=== PATIENT | female | born 1960 | race Caucasian/White ===

== ENCOUNTER 2017-08-12 09:55 | Day surgery (SDC) | payer OTHER, SELFPAY ==
--- NOTE | 2017-08-12 | BRBX_PTH ---
PATIENT: PING ZAMAN [place] [facility] [id number] AGE/SX: 56/F ROOM: RE08/12/[address]: Dr. Dru Marcus MD : 1960 BED: DIS: 08/12/2017 SPEC #: [id number] RECD: 08/12/17 12:24 STATUS: BERTRANDJono DE LEON #: [id number] MIL: 08/12/17 00:[address]: Dru Marcus DEPT: SURGICAL PATHOLOGY RECD BY: Bennie Neri ENTERED: 08/12/17 13:38 SP TYPE: BREAST BX OTHR DR: Joshua Esposito Tissues: A - Left breast, NOS B - Left breast, NOS Procedures: Surgery Specimen Level IV Surgery Specimen Level V HEADER OPERATION: Breast biopsy, NL PRE-OP DIAGNOSIS: Intraductal papilloma ? left breast TISSUE SUBMITTED: A ? Left breast tissue ? to mammography, then lab, B ? Posterior margins ? left breast ISCHEMIC TIME: 15 minutes FIXATION TIME: 31 hours MICROSCOPIC DIAGNOSIS A. Left breast tissue, needle localization, biopsy: Intraductal papilloma. Changes consistent with previous biopsy site. Negative for malignancy. B. Posterior margin, left breast: Intraductal hyperplasia with focal atypia. Negative for malignancy. SELWYN:barber 08/14/17 COMMENT Please make reference to previous specimen ([id number]) superior left breast, ultrasound-guided core biopsy with diagnosis of consistent with adenosis and changes suggestive of intraductal papilloma and inferior left breast, ultrasound-guided core biopsy with diagnosis of focal fibrocystic changes and intraductal hyperplasia without atypia. Case has been reviewed in consultation with Dr. Page who concurs with the above diagnosis. IDC:AM MICROSCOPIC DESCRIPTION Slides are reviewed. GROSS DESCRIPTION A - Received in fixative is one container labeled with the patient's name and designated left breast biopsy. The specimen consists of an irregular fragment of yellow fatty tissue containing a metallic wire. The specimen measures 3.5 x 3.4 x 1.5 cm and weighs 9.2 gm. No orientation is provided. The external surface is inked and the specimen serially sectioned to reveal a yellow cut surface with hemorrhagic cyst. The cyst measures 0.7 x 0.5 cm in greatest dimension. A metallic tracer clip is present within this cyst. The specimen is serially sectioned and totally submitted in six cassettes. B - Received in fixative is one container labeled with the patient's name and designated posterior margin left breast. The specimen consists of an irregular fragment of yellow fatty tissue measuring 2.5 x 1.6 x 1 cm. No orientation is provided. Sections reveal homogenous yellow fatty tissue. No mass lesions are seen. The specimen is serially sectioned and totally submitted in two cassettes. / AM:barber 08/13/17 TC:1 CPT: 79015, 77680
[2017-08-12 10:11] VITALS: BP 148/83; PULSE 92; RESP 16; TEMP 36.1; O2SAT 100; BMI 47.9
--- NOTE | 2017-08-12 10:12 | HPBI_ITS ---
SURGICAL BREAST SPECIMEN RADIOGRAPH CLINICAL: Document presence of mass in biopsy specimen. FINDINGS: Specimen shows presence of mass. Electronically Signed: Michael Hart MD at 14:45 EST Tel [phone], Service support , HPBI/Breast Biopsy Specimen
[2017-08-12] MEDS: Cefazolin 2 GM in 0.9% Normal Saline 100 ML IV (11:54)
--- NOTE | 2017-08-12 11:59 | DCINST_ITS ---
Discharge Diet: No Restrictions Discharge Activity: Return to Normal Activity May shower in (days): 3 Remove Dressing in (days):: 3 - Leave Dermabond in place. Allergies/Adverse Reactions: Allergies adhesive tape Allergy (Mild, Verified 08/08/17 08:10) rash codeine Adverse Reaction (Verified 08/08/17 08:10) Vomiting Medications to take at Discharge Omeprazole [Prilosec] 20 mg PO QHS 11/25/16 lisinopril 10 mg-hydrochlorothiazide 12.5 mg tablet 1 tab PO QDAY tab 07/29/17 Oxycodone HCl/Acetaminophen [Percocet 5/325] 1 - 2 tab PO Q4H PRN PRN 4 Days # 30 tab 08/12/17 The following prescriptions were given: Oxycodone HCl/Acetaminophen [Percocet 5/325] 1 - 2 tab PO Q4H PRN PRN 4 Days # 30 tab PRN Reason: Pain Primary Care Physician: Joshua Esposito [Primary Care Provider] - Please Follow Up With: Dru Marcus MD - [phone] When: Please call for an appointment to be seen in one week.
--- NOTE | 2017-08-12 11:59 | PCM.OPRPT ---
Problem List (1) Intraductal papilloma of left breast Status: Acute Report of Operation Date of Procedure: 08/12/17 Pre-Operative Diagnosis: d24.2 intraductal papilloma left breast Post-Operative Diagnosis: same Surgery/Procedure Performed:: 1: stereo wire localization left breast. 2: wire loc left breast biopsy Type of Anesthesia:: General Anesthesiologist: Garett Valenzuela Specimen's removed: left breast bx Description of Procedure: Patient was brought into the mammography suite. She was placed supine on the fissure table. The left breast was brought down through the opening. A medial to lateral view was obtained. Identified the lesion with a marking clip in place. ?15? views were obtained. I targeted on the manager services remove the second image. Prepped the breast with Betadine and injected local placed the needle with the guidewire into position took 2 more stereo views the needle was in good position going through the lesion. Needle was removed guidewire was left in place cut to length sterile dressings were applied patient was taken mammogram was obtained and she was sent down to the operating room. In the operating room under excellent general anesthetic left breast was sterilely prepped and draped in usual fashion. A medial incision was made dissecting down using the guidewires my guide I dissected completely around the lesion and sent it to radiology for an x-ray which confirmed the clip to be in the biopsy cavity. I took a little bit more tissue posterior that felt grainy and sent that to pathology for permanent sectioning. I use electrocautery for good hemostasis. I brought the subcu together with 2-0 Vicryl deep dermals of 3-0 Vicryl then a running 4-0 Monocryl in the skin Steri-Strips are applied sterile dressings were applied and the patient tolerated the procedure well. - Admit VTE Documentation VTE Present on Admission: No VTE Mechan Device Prophylaxis: SCD's VTE Pharm Prophylaxis ordered?: No Reason prophylaxis not ordered:: Treatment Not Indicated
--- NOTE | 2017-08-12 12:02 | OP.PCM_ITS ---
Problem List (1) Intraductal papilloma of left breast Status: Acute Report of Operation Date of Procedure: 08/12/17 Pre-Operative Diagnosis: d24.2 intraductal papilloma left breast Post-Operative Diagnosis: same Surgery/Procedure Performed:: 1: stereo wire localization left breast. 2 : wire loc left breast biopsy Type of Anesthesia:: General Anesthesiologist: Garett Valenzuela Specimen's removed: left breast bx Description of Procedure: Patient was brought into the mammography suite. She was placed supine on the fissure table. The left breast was brought down through the opening. A medial to lateral view was obtained. Identified the lesion with a marking clip in place. ?15? views were obtained. I targeted on the air conditioning sheet metal installer remove the second image. Prepped the breast with Betadine and injected local placed the needle with the guidewire into position took 2 more stereo views the needle was in good position going through the lesion. Needle was removed guidewire was left in place cut to length sterile dressings were applied patient was taken mammogram was obtained and she was sent down to the operating room. In the operating room under excellent general anesthetic left breast was sterilely prepped and draped in usual fashion. A medial incision was made dissecting down using the guidewires my guide I dissected completely around the lesion and sent it to radiology for an x-ray which confirmed the clip to be in the biopsy cavity. I took a little bit more tissue posterior that felt grainy and sent that to pathology for permanent sectioning. I use electrocautery for good hemostasis. I brought the subcu together with 2-0 Vicryl deep dermals of 3 -0 Vicryl then a running 4-0 Monocryl in the skin Steri-Strips are applied sterile dressings were applied and the patient tolerated the procedure well. - Admit VTE Documentation VTE Present on Admission: No VTE Mechan Device Prophylaxis: SCD's VTE Pharm Prophylaxis ordered?: No Reason prophylaxis not ordered:: Treatment Not Indicated
[2017-08-12] MEDS: Bupivacaine Mpf 0.5% 30 ML VIAL (12:24)
[2017-08-12 12:46] VITALS: BP 138/88; BP 148/83; PULSE 115; RESP 14; TEMP 36.2; O2SAT 90
[2017-08-12 13:00] VITALS: BP 144/71; BP 148/83; PULSE 103; RESP 15; O2SAT 99
[2017-08-12 13:15] VITALS: BP 138/77; BP 148/83; PULSE 101; RESP 16; O2SAT 95
[2017-08-12 13:30] VITALS: BP 118/88; BP 148/83; PULSE 93; RESP 16; O2SAT 97
[2017-08-12 13:36] VITALS: BP 120/83; BP 148/83; PULSE 97; RESP 16; TEMP 36.2; O2SAT 95
== END 2017-08-12 14:21 | disposition home or self-care (01) ==
LOC: SDC 09:56 → AC 09:57
PROVIDERS: Visit Provider Surgery
PROC: (CPT 19125; principal; 2017-08-12 11:15)
DX: D24.2 Benign neoplasm of left breast (principal); N60.92 Unspecified benign mammary dysplasia of left breast; I10 Essential (primary) hypertension; K21.9 Gastro-esophageal reflux disease without esophagitis; Z86.718 Personal history of other venous thrombosis and embolism; Z79.899 Other long term (current) drug therapy; Z80.3 Family history of malignant neoplasm of breast; Z80.0 Family history of malignant neoplasm of digestive organs
CPT/HCPCS: 00400; 19125; 19281; 76098; 88305; 88307; J3010; J7120; A4216

== ENCOUNTER 2017-08-26 10:44 | Day surgery (SDC) | payer OTHER, SELFPAY ==
[2017-08-26] VITALS (7 sets, daily range): BP systolic 151–172; BP diastolic 76–93; PULSE 93–133; RESP 16–18; TEMP 36.4; O2SAT 95–100; BMI 47.9
--- NOTE | 2017-08-26 | BRBX_PTH ---
PATIENT: PING ZAMAN LOC: [facility] – [place] U#:[id number] AGE/SX: 56/F ROOM: RE08/26/[address]: Dr. Dru Marcus MD : 1960 BED: DIS: 08/26/2017 SPEC #: [id number] RECD: 08/26/17 14:58 STATUS: ZARIA MOISES #: [id number] MIL: 08/26/17 00:[address]: Dru Marcus DEPT: SURGICAL PATHOLOGY RECD BY: Gideon Tom ENTERED: 08/26/17 14:58 SP TYPE: BREAST BX OTHR DR: Joshua Esposito Tissues: A - Left breast, NOS B - Left breast, NOS Procedures: Surgery Specimen Level IV Surgery Specimen Level V HEADER OPERATION: Breast, biopsy, NL PRE-OP DIAGNOSIS: Flat epithelial atypia of left breast TISSUE SUBMITTED: A ? Left breast biopsy cavity, B ? Inferior edge left breast FIXATION TIME: 30 hours MICROSCOPIC DIAGNOSIS A. Left breast, biopsy cavity, excision: Intraductal papilloma. Focal intraductal hyperplasia without atypia. Changes consistent with previous biopsy site. Skin, no pathologic diagnosis. Negative for malignancy. B. Inferior edge left breast, biopsy: Intraductal papilloma. Negative for malignancy. SELWYN:barber 08/28/17 COMMENT Please make reference to previous specimen ([id number]) left breast, needle localization biopsy with diagnosis of intraductal papilloma and posterior margin, left breast with diagnosis of intraductal hyperplasia with focal atypia. MICROSCOPIC DESCRIPTION Slides are reviewed. GROSS DESCRIPTION A - Received in fixative is one container labeled with the patient's name and designated breast biopsy cavity. The specimen consists of an irregular fragment of yellow fatty tissue measuring 6 x 5 x 2.5 cm and weighing 32.2 gm. An ellipse of skin measuring 3.6 x 0.7 cm is present along one edge. No orientation is provided. The soft tissue adjacent to the skin is inked in yellow ink. The soft tissue surface at 180 degrees, away from the skin is inked in red ink. The surface at 90 degrees from the skin surface is inked in blue ink and the opposite surface is inked in green ink. The specimen is serially sectioned along its narrow axis to reveal a biopsy cavity measuring 4 x 3.2 x 1 cm. No mass lesion is identified. Rn Labor Delivery sections are submitted in ten cassettes. / AM:barber 08/27/17 B - Received in fixative is one container labeled with the patient's name and designated inferior edge, left breast. The specimen consists of an irregular fragment of yellow fatty tissue measuring 3.2 x 2.2 x 1.5 cm. No orientation is provided. The specimen is sectioned to reveal yellow fatty cut surfaces with a firm, gil-white nodule measuring 1.3 x 1 cm. The nodule is bisected and totally submitted in cassette 1. The remainder of the specimen is sectioned and totally submitted in cassette 2. / AM:barber 08/27/17 TC:1 CPT: 67985, 57088
[2017-08-26] MEDS: Cefazolin 2 GM in 0.9% Normal Saline 100 ML IV (13:10)
--- NOTE | 2017-08-26 13:13 | PCM.OPRPT ---
Problem List (1) Atypical ductal hyperplasia of left breast Status: Acute Report of Operation Date of Procedure: 08/26/17 Pre-Operative Diagnosis: N60.92 atypical ductal hyperplasia of left breast Post-Operative Diagnosis: Same Surgery/Procedure Performed:: Excisional breast biopsy left breast Type of Anesthesia:: General Anesthesiologist: Garett Valenzuela Specimen's removed: Left breast biopsy Estimated Blood Loss (mL): < 25 cc Description of Procedure: Patient was brought in the operating room placed in the supine position. Under excellent endotracheal intubation the left breast was sterilely prepped and draped in usual fashion. Patient had a previous incision in the upper inner quadrant of her breast I ellipsed out the skin incision ellipsed out the entire cavity and sent to pathology for permanent sectioning. On the inferior aspect of the incision that I made I felt a hard nodule and I remove this as well but in a separate container it was sent to the pathologist. Once I had good hemostasis I irrigated out the wound. I brought the wound together with a subcu of 2-0 Vicryl ?2 deep dermal stitches of 3-0 Vicryl then a running 4-0 Monocryl Steri-Strips are applied sterile dressings were applied and the patient tolerated the procedure well. - Admit VTE Documentation VTE Present on Admission: No VTE Mechan Device Prophylaxis: SCD's VTE Pharm Prophylaxis ordered?: No Reason prophylaxis not ordered:: Treatment Not Indicated
--- NOTE | 2017-08-26 13:18 | DCINST_ITS ---
Discharge Diet: No Restrictions Discharge Activity: Return to Normal Activity May shower in (days): 3 Remove Dressing in (days):: 3 - Leave Dermabond in place. Allergies/Adverse Reactions: Allergies adhesive tape Allergy (Mild, Verified 08/22/17 08:15) rash codeine Adverse Reaction (Verified 08/22/17 08:15) Vomiting Medications to take at Discharge Omeprazole [Prilosec] 20 mg PO QHS 11/25/16 lisinopril 10 mg-hydrochlorothiazide 12.5 mg tablet 1 tab PO QDAY tab 07/29/17 Oxycodone HCl/Acetaminophen [Percocet 5/325] 1 - 2 tab PO Q4H PRN PRN 4 Days # 30 tab 08/12/17 Primary Care Physician: Joshua Esposito [Primary Care Provider] - Please Follow Up With: Dru Marcus MD - [phone] When: Please call for an appointment to be seen in one week.
[2017-08-26] MEDS: Bupivacaine Mpf 0.5% 30 ML VIAL (13:40)
== END 2017-08-26 16:00 | disposition home or self-care (01) ==
LOC: SDC 10:45 → AC 10:46
PROVIDERS: Visit Provider Surgery
PROC: (CPT 19120; principal; 2017-08-26 12:45)
DX: D24.2 Benign neoplasm of left breast (principal); N60.92 Unspecified benign mammary dysplasia of left breast; I10 Essential (primary) hypertension; K21.9 Gastro-esophageal reflux disease without esophagitis; Z86.718 Personal history of other venous thrombosis and embolism; Z86.2 Personal history of diseases of the blood and blood-forming organs and certain disorders involving the immune mechanism; Z80.3 Family history of malignant neoplasm of breast; Z80.0 Family history of malignant neoplasm of digestive organs; Z82.49 Family history of ischemic heart disease and other diseases of the circulatory system
CPT/HCPCS: 19120; 88305; 88307; J7120; J2405

== ENCOUNTER 2019-06-23 20:49 | Emergency (ER) | payer OTHER, SELFPAY ==
[2019-06-23 20:51] VITALS: BP 132/84; PULSE 79; RESP 18; TEMP 36.4; O2SAT 98; BMI 48.0
--- NOTE | 2019-06-23 21:14 | RAD_ITS ---
STUDY: X-RAY - LEFT KNEE REASON FOR EXAM: Female, 58 years old. PT C/O L KNEE PAIN,DENIES INJURY TECHNIQUE: 3 view(s) of the knee. COMPARISON: None. FINDINGS: Normal visualized distal femur. Normal visualized proximal tibia and fibula. Normal proximal tibiofibular articulation. There is no demonstrated fracture. Normal medial femorotibial compartment. Normal lateral femorotibial compartment. Normal patellofemoral articulation. Negative for substantial joint effusion. The soft tissue structures are unremarkable. RAD/Knee 3 Views IMPRESSION: Normal x-ray examination of the knee. Electronically Signed: Lary Boothe MD at 21:42 EST , Service support ,
--- NOTE | 2019-06-23 21:43 | US_ITS ---
STUDY: VENOUS DOPPLER ULTRASOUND - LEFT LOWER EXTREMITY REASON FOR EXAM: Female, 58 years old. LT KNEE PAIN ALL AROUND TECHNIQUE: Ultrasound evaluation of the deep vein system to include davenport-scale imaging and compression was performed. Davenport-scale imaging and Doppler sonographic evaluation, including duplex spectral analysis and qualitative color flow sonography, was performed. COMPARISON: None. FINDINGS: Common Femoral Vein: Normal compression, spontaneity and augmentation. Normal color Doppler. Common Femoral Vein/Greater Saphenous Junction: Normal compression. Deep Femoral Vein: Not visualized Femoral Proximal: Normal compression and color flow. Femoral Middle: Normal compression, spontaneity and augmentation. Normal color Doppler. Femoral Distal: Normal compression and color flow. Popliteal Vein: Normal compression, spontaneity and augmentation. Normal color Doppler. Posterior Tibial Vein: Normal compression and color flow. Peroneal Vein: Normal compression and color flow. US/Venous Duplex Imag/Limited/Uni IMPRESSION: Left lower extremity venous Doppler exam negative for deep venous thrombosis. Electronically Signed: Lary Boothe MD at 22:31 EST , Service support ,
[2019-06-23] MEDS: HYDROmorphone 1 MG/ML Syringe IM (21:49)
[2019-06-23] MEDS: Ondansetron 4 MG/2 ML Vial IM (21:49)
--- NOTE | 2019-06-23 22:33 | ED.DCSUM_ITS ---
- ER Visit Summary Date of Service: 06/23/19 Chief Complaint: Knee pain [] History of Present Illness: The patient is a 58 F [presents to the emergency department with complaint of left knee pain that started this evening. Patient states that she was walking in the basement when she felt what seemed like a leg cramp and she felt she needed to keep her knee straight. She try to flex it and then had severe pain. Patient had a very difficult time bearing weight and try to get up to 3 steps back to the main level of the home. Patient denies any pain in her back. She denies any fall. She describes the pain as severe and stabbing. Patient has had no recent travel or surgery. Patient does have a hi story of GERD and hypertension.] Physical Examination: [HEENT-PERRLA, EOMI. Cranial nerves II through XII grossly intact. TMs clear. Mucous membranes moist. No adenopathy. Cardiovascular-regular rate and rhythm without murmur or ectopy Lungs-clear to auscultation, chest wall stable without crepitus or subcu emphysema Abdomen-normoactive bowel sounds, soft, nontender, no rebound or rigidity, no peritoneal signs. Extremities-intact ?4, normal range of motion, normal pulses, atraumatic. Left knee-patient has limited flexion secondary to pain. She has tenderness pal pation over the lateral joint line that seems to reproduce her pain. She has pain with palpation of the posterior aspect of the knee. She is neurovascular intact distally with normal pulses dorsal pedal posterior tibial as well as popliteal and femoral. Unable to perform ligamentous exam as patient does not tolerate.] Test Results: [X-rays of the left knee were normal. Venous Doppler of the left leg was negative for DVT.] Emergency Department Course and Treatment: [She was given Dilaudid 1 mg IM and Zofran 4 mg IM.] Treatment Plan: [Plan will be to give patient knee immobilizer although she has a large body habitus if unable to place knee immobilizer will use Juan Ramon wrap and give crutches. Patient will be given a prescription for [place] for pain. Patient will be given referral to orthopedics for follow-up.] Patient understands she may need further imaging such as possibly MRI to evaluate for internal derangement. Disposition: [Discharged home in stable condition.] Impression: [Left knee pain-etiology uncertain] This note was generated with Dragon dictation software. It may contain incorrect words, spelling, and punctuation that were not noted in review of the chart prior to signing ED Disposition - Plan for ED Patient: Referrals: Joshua Esposito [Primary Care Provider] -
--- NOTE | 2019-06-23 22:37 | ED.DEP ---
ED Disposition - Plan for ED Patient: Instructions: Knee Sprain, KNEE PAIN, Meniscus Injury (Possible) Prescriptions: Hydrocodone Bitart/Apap 5-325 [[place] 5MG-325MG] 1 tab PO Q4H PRN PRN 2 Days #20 tab PRN Reason: Pain Prescription Printed Referrals: Joshua Esposito [Primary Care Provider] - Abena Patel DO [STAFF PHYSICIAN] - 3-5 Days
[2019-06-23 23:01] VITALS: PULSE 80; RESP 16
== END 2019-06-23 23:04 | disposition home or self-care (01) ==
LOC: ED 21:19
PROVIDERS: Emergency Provider Emergency Medicine; Referring Provider Family Medicine
DX: M25.562 Pain in left knee (principal); I10 Essential (primary) hypertension; K21.9 Gastro-esophageal reflux disease without esophagitis
CPT/HCPCS: 73562; 93971; 96372; 99283; J2405

== ENCOUNTER → 2019-07-01 12:39 | Outpatient (CLI) | payer OTHER, SELFPAY ==
[2019-06-25 09:47] VITALS: BMI 48.0
--- NOTE | 2019-07-01 13:00 | MRI_ITS ---
STUDY: MRI LEFT KNEE REASON FOR EXAM: Female, 58 years old. Pain. Twisting injury. TECHNIQUE: Standardized fat and water weighted pulse sequences were obtained in all 3 orthogonal planes. COMPARISON: X-ray June 23, 2019. FINDINGS: Normal medial meniscus. Normal hyaline cartilage of the medial femorotibial compartment. Normal medial femoral condyle and tibial plateau. Normal medial collateral ligamentous complex (MCL). Normal distal semimembranosus, gracilis and semitendinosus tendons. Lateral meniscus tear of the anterior horn and body, series 4 images /42 through 34. There is 3.9 x 1.0 cm parameniscal cyst, series 5 image . Normal hyaline cartilage of the lateral femorotibial compartment. Normal lateral femoral condyle and tibial plateau. Normal proximal tibiofibular articulation. Normal lateral collateral (fibular) ligament. Normal popliteus tendon. Normal biceps femoris tendon. Normal anterior cruciate ligament (ACL). Normal posterior cruciate ligament (PCL). There is arthrosis of the patellofemoral articulation. There is diffuse, greater than 50% thickness articular cartilage loss of the patellofemoral compartment. Subchondral edema of the posterior patella. Normal medial and lateral patellar retinaculum. Normal quadriceps tendon. Normal patellar tendon. Normal Hoffa''s fat pad. There is a small volume joint effusion. The soft tissues are unremarkable. The otherwise visualized osseous structures are unremarkable. MRI/Lower Ext Joint Only (Routine) IMPRESSION: Lateral meniscus tear with para meniscal cyst. Patellofemoral degenerative change. Joint effusion. Electronically Signed: Cain Jones MD at 22:09 EST , Service support ,
== END ==
LOC: MRI 12:40
PROVIDERS: Referring Provider Orthopaedic Surgery; Visit Provider Orthopaedic Surgery
DX: S83.282A Other tear of lateral meniscus, current injury, left knee, initial encounter (principal); X50.1XXA Overexertion from prolonged static or awkward postures, initial encounter; M17.12 Unilateral primary osteoarthritis, left knee
CPT/HCPCS: 73721; A9575

== ENCOUNTER 2019-07-13 08:55 | Day surgery (SDC) | payer OTHER, SELFPAY ==
[2019-07-02 11:09] VITALS: BMI 48.0
[2019-07-13] VITALS (8 sets, daily range): BP systolic 113–134; BP diastolic 60–77; PULSE 75–108; RESP 14–18; TEMP 36–37; O2SAT 92–99; BMI 47.9
[2019-07-13] MEDS: Lactated Ringers 1,000 ML 100 ML IV (10:25)
[2019-07-13] MEDS: Cefazolin 2 GM in 0.9% Normal Saline 100 ML IV (10:31)
--- NOTE | 2019-07-13 10:38 | HP.PCM_ITS ---
History and Physical Date of Admission: 07/13/19 Intake Vital Signs 07/02/19 BMI 48.0 Intake Visit Reasons: Left knee Chief Complaint: left breast biopsy x2 Allergies adhesive tape Allergy (Mild, Verified 06/23/19 20:53) rash codeine Adverse Reaction (Verified 06/23/19 20:53) Vomiting [facility] Social History (Updated 07/02/19 @ 11:11 by Maico Sosa DO) Smoking Status: Never smoker alcohol intake: never HPI Left knee: Details: Parts of this documentation were recorded by a scribe, this documentation accurately reflects the service provided and the decisions made by me, Maico Sosa DO 07/02/19 0753. PING ZAMAN is a 58 year old F here today for MRI follow-up left knee continues to have lateral knee pain and using crutches Ortho Exam Left Knee Examination: Yes Lat jt line tenderness KNEE: Left Knee Date of injury: 06/23/19 Skin/Wound: No ecchymosis, No erythema, No swelling Homans Sign: No Knee ROM: No ROM-Extension -20 to 0 (painful ), No ROM-Flexion 0-140 (70 increased pain) Examination: Yes Lat jt line tenderness, Yes Pain with flexion, Yes Andrey's Test Stability: NML: Anterior Drawer, NML: Posterior Drawer, NML: Valgus 30 (causes lateral sided pain), NML: Varus 30 Apprehension with Lateral Translation: No Patella Grind: Yes KNEE: painful patella grind, painful valgus stress morbidly obese Assessment & Plan Problems 1. Acute lateral meniscus tear of left knee, subsequent encounter S83.820D 2. Primary osteoarthritis of left knee M17.12 3. Class 3 severe obesity due to excess calories without serious comorbidity with body mass index (BMI) of 45.0 to 49.9 in adult E66.01; Z68.42 Plan Personally reviewed the MRI and explained that she has an acute lateral meniscus tear that will need an arthroscopy for partial meniscectomy but secondary to the OA noted she may have aching after surgery. If the post op OA pain is too great we can do an injection 6wks post op. Explained that the sharp shooting pain is from the meniscus and that should be resolved with the surgery. She will need to use the crutches post op until tolerated to fwb. Reviewed the pre-operative plans with the patient. Risks and benefits of the procedure were fully explained, including but not limited to infection, neurovascular injury, continued pain, arthritis, stiffness, need for further surgery, re-injury, DVT, PE, general risks of anesthesia, and loss of limb or life. The patient understands all the risks and does wish to proceed with written consent. Recommend patient use aspirin 81 mg twice daily for 30 days postop secondary to history of superficial blood clot in the past and morbid obesity Follow up 2 weeks postop or sooner if pain, swelling, numbness or associated symptoms, or concerns develop. All questions answered. Patient in agreement of plan. Coding Level of Care Code Off vis,est,level 3 Diagnoses Acute lateral meniscus tear of left knee, subsequent encounter S83.282D ??Encounter type: subsequent encounter Primary osteoarthritis of left knee M17.12 ??Osteoarthritis type: primary Class 3 severe obesity due to excess calories without serious comorbidity with body mass index (BMI) of 45.0 to 49.9 in adult E66.01; Z68.42 ??Obesity type: due to excess calories ??Obesity classification: adult class 3 (BMI >= 40) ??Serious obesity comorbidity presence: without serious comorbidity ??Body mass index: BMI 45.0-49.9 I have re-examined the patient. There are no clinical changes since date of exam
[2019-07-13] MEDS: MethylPREDNISolone Acetate 80 MG/ML Vial (11:00)
[2019-07-13] MEDS: Bupiv/Epi 0.5% Mpf 30 ML Vial (11:00)
[2019-07-13] MEDS: Bupivacaine Mpf 0.5% 30 ML VIAL (11:00)
[2019-07-13] MEDS: Epinephrine (1 mg/ml) 1 MG/ML VIAL (11:00)
[2019-07-13] MEDS: Mupirocin Ointment 22gm Tube 1 APPLIC (11:20)
--- NOTE | 2019-07-13 11:26 | DCINST_ITS ---
Discharge Diet: No Restrictions Weight Bearing Status: Weight bearing as tolerated Additional Instructions: Ice and elevate next 72 hours .keep dressing on clean and dry for 48 hours then may remove begin showering daily but do not submerge in tub or pool. After shower may apply Band-Aids . Encourage knee range of motion weightbearing as tolerated, use crutches until confident in knee then may discontinue. No strenuous activity. When not ambulating keep iced and elevated next 72 hours. Allergies/Adverse Reactions: Allergies adhesive tape Allergy (Mild, Verified 07/13/19 09:54) rash codeine Adverse Reaction (Verified 07/13/19 09:54) Vomiting Medications to take at Discharge Omeprazole [Prilosec] 20 mg PO QHS 11/25/16 lisinopril 10 mg-hydrochlorothiazide 12.5 mg tablet 1 tab PO QDAY tab 07/29/17 Oxycodone [Oxyir] 5 mg PO Q4H PRN PRN #60 tablet 07/13/19 The following prescriptions were given: Oxycodone [Oxyir] 5 mg PO Q4H PRN PRN #60 tablet PRN Reason: Pain Score 4-5/10 Transmission Status: Received by [facility]/pharmacy #[id number] Primary Care Physician: Joshua Esposito [Primary Care Provider] - Test Results: Test results from this visit will be discussed in further detail at your follow- up appointment, if applicable. Please Follow Up With: Maico Sosa DO - 2 weeks
--- NOTE | 2019-07-13 11:28 | OP.PCM_ITS ---
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 Postoperative diagnosis: Complex anterior horn and body lateral meniscus tear left knee grade 2 early grade 3 patellofemoral medial and lateral compartment Procedure: Left knee arthroscopic partial lateral meniscectomy posterior horn and body Anesthesia: General Estimated blood loss: 5 mL Tourniquet time: 20 minutes 300 mmHg Complications: none Indication for procedure: This is a 58-year-old obese female who had sustained injury to her knee with MRI evidence of meniscal tear meniscal complaints the patient did wish to proceed with an elective arthroscopic surgery to attempt to alleviate the symptoms. Risk benefits and alternatives of the procedure were reviewed including risk of bleeding infection nerve artery tissue damage need for further surgery continued pain and expected postoperative course. Procedure: The patient was met in the preoperative holding area. The operative extremity was identified by both patient and physician and family and marked. Patient was brought back to the operating room on a wheeled cart and transferred to the operating table in the supine position. Anesthesia was started. A well- padded tourniquet was placed on the operative extremity. A lower extremity leg franklin was secured to the operative extremity. The contralateral extremity was well-padded and the end of the bed was flexed to 90 degrees. The patient was prepped and draped in the usual sterile fashion. A timeout was called to ensure the proper patient, procedure, and extremity were being contemplated. 0.5% Marcaine with epinephrine was injected into the planned incisional areas under the skin only. An Esmarch was used to exsanguinate the extremity and the tourniquet was inflated. An 11 blade scalpel was used to make a stab incision in the anterior lateral portal. The arthroscope was inserted into the intercondylar notch and inflow and outflow tubes were attached. Arthroscopic visualization began. The medial compartment was entered. An 18-gauge spinal needle was used to establish the placement for anterior medial portal. An 11 blade scalpel was used to make a stab incision. Blunt probe was inserted followed by a meniscal probe. Some grade 2 early grade 3 wear throughout the knee no loose cartilage flaps the ACL was found to be intact. The lateral compartment was entered complex tear of the anterior horn and body lateral meniscus with the use of an arthroscope go back shaver and ArthroCare wand partial lateral meniscectomy was performed The arthroscope was switched to the medial portal to complete the procedure. The medial and lateral gutters were inspected and were free of loose bodies. The patellofemoral joint was inspected grade 2-3 cartilage wear. There was good patellar tracking. The knee was thoroughly irrigated and drained. An intra-articular injection with 5 cc 0.5% Marcaine plain 4 mg of morphine and 40 mg of Depo-Medrol was injected intra- articularly. The arthroscope was removed the portals were closed with 3-0 nylon arthroscopic stitches. Followed by Xeroform 4 x 4's ABDs web roll and an Juan Ramon wrap. The tourniquet was let down and the drapes were removed. All counts were correct. The patient was brought back to the PACU in stable condition.
== END 2019-07-13 14:37 | disposition home or self-care (01) ==
LOC: SDC 08:57 → AC 08:58
PROVIDERS: Referring Provider Orthopaedic Surgery; Visit Provider Orthopaedic Surgery
PROC: (CPT 29870; principal; 2019-07-13 10:10)
DX: S83.272A Complex tear of lateral meniscus, current injury, left knee, initial encounter (principal); X58.XXXA Exposure to other specified factors, initial encounter; Y93.9 Activity, unspecified; M17.12 Unilateral primary osteoarthritis, left knee; I10 Essential (primary) hypertension; K21.9 Gastro-esophageal reflux disease without esophagitis; E66.01 Morbid (severe) obesity due to excess calories; Z68.42 Body mass index [BMI] 45.0-49.9, adult; Z79.899 Other long term (current) drug therapy
CPT/HCPCS: 29881; J7120; J2405

== ENCOUNTER 2020-09-13 15:07 | Outpatient (RCR) | payer OTHER, SELFPAY ==
[2019-07-23 09:24] VITALS: BMI 47.9
== END 2020-11-14 23:59 ==
LOC: IMMUN 15:07
PROVIDERS: Referring Provider Family Medicine; Visit Provider Family Medicine
DX: Z23 Encounter for immunization (principal)
CPT/HCPCS: 0001A; 0002A; 91300